=== PATIENT | female | born 1990 | race Caucasian/White ===

== ENCOUNTER 2021-04-27 16:32 | Emergency (ER) | payer OTHER ==
[~2021-04-27 16:32] MED LIST: BACTROBAN OINT22 GM EXT; KEFLEX CAP 500500 MG PO
[2021-04-27] MEDS ORDERED: IBUPROFEN600 MG PO (17:47)
== END 2021-04-27 17:50 | disposition home or self-care (01) ==
LOC: ER1 16:32
DX: Z04.3 Encounter for examination and observation following other accident (principal)
CPT/HCPCS: 71045; 99283